=== PATIENT | female | born 1990 | race Caucasian/White ===

== ENCOUNTER 2018-06-28 09:12 | Emergency (ER) | payer MEDICAID ==
[2018-06-28 10:09] LABS: URINE BLOOD (Dip) POC Trace-intact (NEGATIVE); URINE GLUCOSE (Dip) POC Negative (NEGATIVE); URINE KETONES (Dip) POC Negative (NEGATIVE); URINE LEUKOCYTE EST (Dip) POC Negative (NEGATIVE); URINE NITRITE (Dip) POC Negative (NEGATIVE); URINE TOTAL PROTEIN POC Negative (NEGATIVE)
[2018-06-28 10:09] LABS: URINE PH (Dip) POC 6.5 (5.0-8.5)
[2018-06-28] MEDS: ONDANSETRON 4 MG INJ IV (10:10)
[2018-06-28] MEDS: ACETAMINOPHEN 500 MG TAB PO (10:10)
[2018-06-28] MEDS: SOD CHLORIDE 0.9% 1,000 ML IV (10:12)
[2018-06-28] MEDS: KETOROLAC 30 MG INJ IV (10:15)
== END 2018-06-28 12:02 | disposition home or self-care (01) ==
LOC: FTE 09:12
DX: B34.9 Viral infection, unspecified (principal); K52.9 Noninfective gastroenteritis and colitis, unspecified
CPT/HCPCS: 81003; 81025; 96361; 96374; 96375; 99284-25